=== PATIENT | female | born 1960 | race African-American/Black ===

== ENCOUNTER 2018-09-06 17:47 | Inpatient (IN) ==
[2018-09-06] MEDS ORDERED: PHENERGAN IM ONE (18:37)
[2018-09-06] MEDS ORDERED: MOTRIN PO ONE (18:37)
[2018-09-06] MEDS ORDERED: DELSYM LIQUID PO ONE (18:39)
--- NOTE | 2018-09-06 18:47 | PROVIDER DOCUMENTATION ---
HPI-General Adult - General Chief Complaint: Cold Symptoms Stated Complaint: COLD Time Seen by Provider: 09/06/18 17:52 Source: patient Allergies/Adverse Reactions: Patient Allergies Allergy/AdvReac Type Severity Reaction Status Date / Time No Known Allergies Allergy Verified 09/06/18 17:59 Home Medications: Home Medication List Medication Instructions Recorded Confirmed Last Taken Type Hydrocodone/APAP 5 mg/325 mg 1 - 2 tab PO Q6H PRN PRN #18 tablet 08/09/13 01/27/15 01/27/15 09:00 Rx [[place]-5] Sitagliptin Phos/Metformin HCl 1 each PO DAILY 08/14/13 01/27/15 01/27/15 09:00 History [Janumet 50-1,000 mg Tablet] Fentanyl 75 Microgm/Hr Patch 25 patch TOP DIRECTED 03/26/14 01/27/15 01/27/15 09:00 History [Duragesic 75 Microgm/Hr Patch] Olmesartan/Hydrochlorothiazide 1 tab PO DAILY 03/26/14 01/27/15 01/27/15 09:00 History [Benicar Hct 20-12.5 mg Tablet] Azithromycin [Zithromax Z-Jaime] 250 mg PO DIRECTED #1 pkg 01/16/16 Unknown Rx Cetirizine [Zyrtec] 10 mg PO DAILY #20 tablet 01/16/16 Unknown Rx Prednisone 10 mg PO DIRECTED #9 tablet 01/16/16 Unknown Rx Azithromycin [Zithromax Z-Jaime] 250 mg PO DIRECTED #1 pkg 06/03/16 Unknown Rx Prednisone 20 mg PO DAILY #10 tablet 06/03/16 Unknown Rx Cephalexin [Keflex] 500 mg PO 4XDAY #20 cap 03/12/18 Unknown Rx Ketorolac [Toradol] 10 mg PO Q6H PRN PRN #20 tab 03/12/18 Unknown Rx Ondansetron [Ondansetron Odt] 4 mg PO Q6-8H PRN PRN #20 03/12/18 Unknown Rx tab.rapdis - History of Present Illness -Gen Adult Nature of Presenting Problems: pt c/o 1 day HX of productive cough, subjective fever, body aches, LEUNG w/ sinus congestion, nausea, and generalized malaise . pt states she has had yellow sputum. pt states sx. at worse are moderate. Location of Pain/Injury: reports: head (LEUNG w sinus pain) Pain Radiation: reports: no radiation Quality of Pain: reports: aching, pressure, throbbing Severity: reports: moderate Onset/Duration: reports: unsure Timing: reports: still present Context/Activities at Onset: reports: none Modifying Factors: improves with: nothing (worse with coughing), coughing Associated Symptoms: reports: cough, fever/chills, headaches, malaise, muscle aches, sinus congestion/drainage, nausea. denies: seizure, shortness of breath, sensory/motor loss, pain with inspiration, swelling/mass in abdomen, syncope, vomiting, weakness, trouble walking Similar Symptoms Previously?: Yes (w/ prior URI) Recently seen or treated by another doctor?: No Review of Systems - Adult - REVIEW OF SYSTEMS - ADULT Constitutional: reports: see HPI Eyes: reports: no symptoms reported Ears, Nose, Mouth & Throat: reports: see HPI Cardiovascular: reports: no symptoms reported Respiratory: reports: no symptoms reported Gastrointestinal: reports: see HPI Genitourinary: reports: no symptoms reported Musculoskeletal: reports: no symptoms reported Integumentary: reports: no symptoms reported Neurological: reports: no symptoms reported Psychiatric: reports: no symptoms reported Endocrine: reports: no symptoms reported Hematologic/Lymphatic: reports: no symptoms reported Allergic/Immunologic: reports: no symptoms reported All Other Systems: Reviewed and Negative Past History - Adult - PAST MEDICAL HISTORY-ADULT Review of Records: reports: Old Records Reviewed, Nursing Assessment Review, Medications Reviewed Major Childhood Illnesses: reports: denies history Cardiovascular: reports: HTN Respiratory: reports: denies history Gastrointestinal: reports: denies history Obstetrical/Gynecological: reports: denies history Genitourinary: reports: denies history Musculoskeletal: reports: chronic pain (back) Neurological: reports: denies history Psychiatric: reports: denies history Endocrine/Immune: reports: Diabetes Diabetes Type: Type 2 Other Conditions: reports: denies history - PRIOR SURGERIES/PROCEDURES Surgical/Procedure History: reports: cholecystectomy, hysterectomy, BTL - PRIOR HOSPITALIZATIONS Prior Hospitalizations: reports: for other non-related - IMMUNIZATION STATUS Childhood Immunizations: See Nurse Assessment Flu Vaccine: See Nurse Assessment - FAMILY HISTORY Family History: reviewed, not pertinent - SOCIAL HISTORY Smoking: denies Substance Use: none/never Alcohol Use Frequency: never Physical Exam-General - PHYSICAL EXAM-ADULT Initial Vital Signs Reviewed: Yes - CONSTITUTIONAL General Appearance: appears well, alert, mild distress - EYES Eyes: PERRL/EOMI, pink conjunctivae, sclera injected. negative: conjuctival exudate, EOM palsy, photophobia, scleral icterus, subconjunctival hemorrhage, sunken eyes - HEAD, EARS, NOSE, MOUTH & THROAT HENMT: normocephalic/atraumatic, moist mucous membranes, normal ENT inspection - NECK Neck: non-tender, full range of motion, supple - RESPIRATORY Respiratory: chest non-tender, lungs clear, normal breath sounds, no pleuratic chest pain, no respiratory distress, no accessory muscle use - CARDIOVASCULAR Cardiovascular: normal peripheral pulses, regular rate, rhythm, no edema, no gallop, no JVD, no murmur - GASTROINTESTINAL (ABDOMEN) Abdominal Exam: normal bowel sounds, non tender, soft - LYMPHATIC Lymphatic: no adenopathy - MUSCULOSKELETAL Back Exam: normal inspection Extremity: normal range of motion - SKIN Integumentary: normal color, normal turgor, warm/dry - NEUROLOGIC Neurologic: supervisor finish end II-XII nml as tested, grossly normal, no motor/sensory deficits. negative: facial droop, focal weakness, motor weakness - PSYCHIATRIC Psych/Mental Status: normal mood/affect, normal thought content, normal thought process, oriented x 3 Progress - PLAN OF CARE/RESULTS Progress/Plan/Lab Results: Vital Signs - 8 hr 09/06/18 17:53 Temperature 99.4 F Pulse Rate 96 H Respiratory Rate 20 Blood Pressure 172/88 O2 Sat by Pulse Oximetry 96 Orders Category Date Time Status CHEST-2 VIEWS [RAD] Stat Exams 09/06/18 18:38 Ordered CBC WITH ELECTRONIC DIFF [HEME] Stat Lab 09/06/18 18:39 Uncollected COMPREHENSIVE METABOLIC PANEL [CHEM] Stat Lab 09/06/18 18:39 Uncollected Flu [INFLUENZA SCREEN PL] Stat Lab 09/06/18 18:41 Uncollected ua [URINALYSIS PL W/POSS RFLX CULT] [URINALYSIS] Stat Lab 09/06/18 18:39 Uncollected Dextromethorphan HBr [Delsym Liquid] Med 09/06/18 18:39 Discontinued 10 ml PO NOW ONE Ibuprofen [Motrin] Med 09/06/18 18:37 Discontinued 600 mg PO NOW ONE Promethazine [Phenergan] Med 09/06/18 18:37 Discontinued 25 mg IM NOW ONE Result Diagrams: 09/06/18 19:44 09/06/18 19:44 - XRAY 1 XRAY Study: Chest Impression: Abnormal XRAY Interpretation: opacities consistent w PNA Departure - Departure Date of Disposition Decision: 09/06/18 Time of Disposition Decision: 22:22 DIAGNOSIS: Pneumonia, Hypoxia Disposition: ADMITTED INPATIENT 09 Certified Medical Emergency: Emergent Condition: Stable Referrals and Follow-Ups: Christal Martinez [Primary Care Provider] - - Critical Care Note This patient required my direct & personal management of CC.: No Attestation - Physician/ GRADY Attestation Patient care was provided by Advanced Practice Provider:: Yes Advanced Practice Provider:: Anthony Ortiz Advanced Practice Provider documentation review:: The Mid-level provider documentation, treatment plan and medical decision making was reviewed by the physician who agrees with all treatment and medical decision making by the MLP. The physician spent face to face time with patient:: No Advanced Practice Provider documentation review:: Supervising physician onsite and consulted in the evaluation and care of this patient. The physician did not have a face to face encounter with the patient.
--- NOTE | 2018-09-06 19:37 | Diag Imaging Result Doc PS360 ---
EXAM: CHEST-2 VIEWS HISTORY: pluritic CP/ productive cough TECHNIQUE: Chest two views COMPARISON: 06/03/2016 FINDINGS: Poor inspiratory effort.The heart is not enlarged. The vessels are not distended. There are mild increased markings in the left base. No pleural effusions. IMPRESSION: Small left infiltrate Electronically signed by Eugene Hampton 09/06/2018 7:35 PM
[2018-09-06 19:41] LABS: INFLUENZA A NEGATIVE (NEGATIVE); INFLUENZA B NEGATIVE (NEGATIVE)
[2018-09-06 20:02] LABS: BASO# 0.02 X1000 (0.0-0.2); BASO% 0.2 % (0.0-0.8); EOS# 0.02 X1000 (0.0-0.7); EOS% 0.2 % (0.0-10.0); HEMATOCRIT 41.1 % (37.0-47.0); HEMOGLOBIN 13.4 g/dL (12.0-16.0); IMM GRAN# 0.02 X1000 (0.0-0.04); IMM GRAN% 0.2 % (0.0-0.5); LYMPH# 1.11 X1000 (1.2-3.4); LYMPH% 9.7 % (20.5-51.1); MCH 27.2 PG (27-31); MCHC 32.6 g/dL (33-37); MCV 83.4 FL (81-99); MONO# 0.87 X1000 (0.11-0.59); MONO% 7.6 % (1.7-9.3); MPV 10.2 FL (7.4-10.4); NEUT# 9.45 X1000 (1.4-6.5); NEUT% 82.1 % (42.2-75.2); PLT 316 X1000 (130-400); RBC 4.93 XMIL (4.2-5.4); RDW 13.9 % (11.5-14.5); WBC 11.49 X1000 (4.8-10.8)
[2018-09-06 20:26] LABS: AGAP 9; ALKALINE PHOSPHATASE 99 U/L (32-104); BUN 9 mg/dL (8-22); CALCIUM 8.9 mg/dL (8.8-10.2); CHLORIDE 96 mmol/L (98-107); COSMO 273; CREATININE 0.5 mg/dL (0.5-0.9); ESTIMATED GFR > 60; GLUCOSE 141 mg/dL (70-104); GOT 24 U/L (10-30); GPT 35 U/L (10-36); POTASSIUM 4.2 mmol/L (3.5-5.1); SODIUM 136 mmol/L (136-145); TCO2 31 mmol/L (25-35); TOTAL PROTEIN 7.6 g/dL (6.3-8.3)
[2018-09-06 20:26] LABS: URINE BACTERIA NEGATIVE /HFP; URINE CAST NONE SEEN /LPF; URINE CRYSTAL NONE SEEN /HPF; URINE EPITHELIAL CELLS <10 /HPF (<10); URINE SOURCE CLEAN CATCH; URINE YEAST NONE SEEN /HPF
[2018-09-06 20:28] LABS: BILIRUBIN URINE NEGATIVE (NEGATIVE); BLOOD URINE NEGATIVE (NEGATIVE); CLARITY CLEAR (CLEAR); COLOR YELLOW; GLUCOSE URINE NEGATIVE (NEGATIVE); KETONE URINE NEGATIVE (NEGATIVE); LEUKOCYTES URINE NEGATIVE (NEGATIVE); NITRITE URINE NEGATIVE (NEGATIVE); PROTEIN URINE NEGATIVE (NEGATIVE); SP GRAVITY URINE 1.005; UROBILINOGEN URINE NORMAL
[2018-09-06] MEDS ORDERED: DUONEB (A & A) INH ONE (20:51)
[2018-09-06] MEDS ORDERED: ZITHROMAX 500 MG/NS 500 MG/250 ML IVPB IV ONE (22:16)
[2018-09-06] MEDS ORDERED: ROCEPHIN 1 GM in NS 50 ML IV ONE (22:16)
[2018-09-06] MEDS ORDERED: NS 1,000 ML IV ONE ×2 (22:18→23:12)
[2018-09-06] MEDS ORDERED: TYLENOL PO PRN (23:12)
[2018-09-06] MEDS: DUONEB (A & A) INH SCH (23:50)
[2018-09-06] MEDS: NORCO-7.5 PO PRN (23:53)
[2018-09-07] MEDS: ROBITUSSIN-DM PO PRN ×3 (00:08→23:11)
[2018-09-07] MEDS: ZOFRAN IV PRN ×3 (00:09→22:02)
[2018-09-07] MEDS ORDERED: NORCO-7.5 PO SCH (02:00)
[2018-09-07] MEDS: ZITHROMAX 500 MG/NS 500 MG/250 ML IVPB IV SCH ×2 (02:36→23:11)
[2018-09-07] MEDS: DUONEB (A & A) INH SCH ×5 (03:50→21:11)
[2018-09-07] MEDS: NORCO-7.5 PO PRN (07:20)
[2018-09-07] MEDS ORDERED: HYDROCHLOROTHIAZIDE PO SCH (10:15)
[2018-09-07] MEDS ORDERED: OLMESARTAN PO SCH (10:15)
[2018-09-07] MEDS ORDERED: NON-FORMULARY MED (Sitagliptin Phos/Metformin Hcl [Janumet 50-1,000 Mg Tablet] 1 EACH) PO SCH (10:15)
[2018-09-07] MEDS ORDERED: [UNRECOGNIZED DRUG - OTHER] PO SCH (10:15)
[2018-09-07] MEDS: NEXIUM PO SCH (11:39)
[2018-09-07] MEDS: BENICAR PO SCH (11:40)
[2018-09-07] MEDS: HYDROCHLOROTHIAZIDE PO SCH (11:40)
[2018-09-07] MEDS: GLUCOPHAGE PO SCH ×2 (11:41→11:44)
[2018-09-07] MEDS: JANUVIA PO SCH (11:41)
[2018-09-07] MEDS: NORCO-10 PO SCH ×3 (11:42→16:32)
--- NOTE | 2018-09-07 15:08 | HISTORY AND PHYSICAL ---
PRIMARY CARE PHYSICIAN: Dr. Christal Martinez. CHIEF COMPLAINT: Subjective fever, body aches, productive cough of yellow sputum, nausea, generalized malaise, and headache for the past several days that had progressively worsened. HISTORY OF PRESENTING ILLNESS: This is a 58-year-old female who presents to [facility] ER with complaints of a subjective fever, body aches, a productive cough of yellow sputum, generalized malaise, nausea, and a headache. Workup in the emergency room showed a white blood cell count of 11.49. Influenza A and B were both negative. Her chest x-ray showed a small left infiltrate. When she arrived, she had an O2 saturation of 96%, but it did drop down to 91% on room air, so she was placed on O2 via nasal cannula and is currently saturating anywhere from 93% to 100% and admitted for further evaluation and treatment. PAST MEDICAL HISTORY: Hypertension diabetes type 2, and chronic pain. PAST SURGICAL HISTORY: Cholecystectomy, hysterectomy, and a bilateral tubal ligation. FAMILY HISTORY: Reviewed and noncontributory. SOCIAL HISTORY: She currently lives with family. Denies any tobacco, alcohol, or illicit drug use. ALLERGIES: She has no known drug allergies. HOME MEDICATIONS: She takes Nexium 40 mg p.o. daily; Warba 10 one p.o. t.i.d.; Benicar/hydrochlorothiazide 20/12.5 one p.o. daily; Janumet mg 1 p.o. daily. LABORATORY DATA: Showed a white blood cell count of 11.49, hemoglobin of 13.4, hematocrit 41.1, platelets 316,000. Sodium 136, potassium 4.2, chloride 96, CO2 of 31, BUN of 9, creatinine 0.5, glucose 141. Plasma lactate of 0.9. Urinalysis showed none detected. Influenza A and B were both negative. Chest x-ray showed a small left infiltrate. REVIEW OF SYSTEMS: She was positive for a subjective fever, body aches, generalized malaise, headache, shortness of breath worse with exertion, productive cough of yellow sputum, nausea. Denied any abdominal pain, constipation, diarrhea, burning or hurting with urination. PHYSICAL EXAMINATION: VITAL SIGNS: On arrival showed a temperature of 99.4 degrees, pulse 96, respirations 20, blood pressure 172/88, saturating 96% on room air. Her O2 saturation did drop as low as 91% on room air. She was placed on O2 via nasal cannula at 2 L and is saturating anywhere from 93% to 100% on her 2 L. HEENT: Normocephalic, atraumatic. Normal ENT inspection. Oropharynx and nares are clear. EYES: Pupils are equal, round, and reactive to light and accommodation. Extraocular movements are intact. NECK: Normal inspection. Normal range of motion. LUNGS: With decreased breath sounds throughout entire posterior lung rangel. Equal lung expansion of chest wall movement noted. O2 via nasal cannula currently in use. HEART: Regular rate and rhythm. No murmurs, rubs, or gallops. ABDOMEN: Soft, nontender, nondistended. Bowel sounds are present x4 quadrants. MUSCULOSKELETAL: She had 5/5 strength x4 extremities. NEUROLOGICAL: The cranial nerves 2-12 appear grossly intact. ASSESSMENT: 1. Left lower lobe pneumonia. 2. Hypoxemia. 3. Hypertension. 4. Diabetes type 2. PLAN: She currently is admitted to the medical unit at [facility] and placed on a diabetic diet. Blood cultures x2 were pending. We will place her on Rocephin 1 gram IV q.24, azithromycin 500 IV q.24, DuoNebs q.4 hours. Continue home medications as previously identified. Recheck a CBC and a BMP in the a.m. Further orders after seen by attending. Dictated by DONYA Moreau for Joao Hernandez MD cc: DONYA Moreau MD Faye Wilson, MD
[2018-09-07] MEDS: ROCEPHIN 1 GM in NS 50 ML IV SCH (21:56)
[2018-09-08] MEDS: DUONEB (A & A) INH SCH ×7 (01:00→22:32)
[2018-09-08] MEDS: NEXIUM PO SCH (06:09)
[2018-09-08 07:21] LABS: BASO# 0.01 X1000 (0.0-0.2); BASO% 0.1 % (0.0-0.8); HEMATOCRIT 37.9 % (37.0-47.0); HEMOGLOBIN 12.5 g/dL (12.0-16.0); IMM GRAN# 0.01 X1000 (0.0-0.04); IMM GRAN% 0.1 % (0.0-0.5); LYMPH# 1.94 X1000 (1.2-3.4); LYMPH% 21.4 % (20.5-51.1); MCH 27.5 PG (27-31); MCV 83.5 FL (81-99); MONO# 0.97 X1000 (0.11-0.59); MONO% 10.7 % (1.7-9.3); MPV 10.7 FL (7.4-10.4); NEUT# 6.14 X1000 (1.4-6.5); NEUT% 67.7 % (42.2-75.2); PLT 272 X1000 (130-400); RBC 4.54 XMIL (4.2-5.4); RDW 13.7 % (11.5-14.5); WBC 9.07 X1000 (4.8-10.8)
[2018-09-08 07:44] LABS: AGAP 9; BUN 7 mg/dL (8-22); CALCIUM 8.6 mg/dL (8.8-10.2); CHLORIDE 95 mmol/L (98-107); COSMO 271; CREATININE 0.4 mg/dL (0.5-0.9); ESTIMATED GFR > 60; GLUCOSE 122 mg/dL (70-104); POTASSIUM 3.5 mmol/L (3.5-5.1); SODIUM 136 mmol/L (136-145); TCO2 31 mmol/L (25-35)
[2018-09-08] MEDS: HYDROCHLOROTHIAZIDE PO SCH (10:43)
[2018-09-08] MEDS: JANUVIA PO SCH (10:44)
[2018-09-08] MEDS: GLUCOPHAGE PO SCH (10:44)
[2018-09-08] MEDS: BENICAR PO SCH (10:45)
[2018-09-08] MEDS: NORCO-10 PO SCH ×3 (10:47→17:16)
[2018-09-08] MEDS ORDERED: PNEUMOVAX 23 IM ONE (12:00)
--- NOTE | 2018-09-08 14:51 | PROGRESS NOTE ---
DATE: 09/08/2018 PHYSICAL: Temperature 99, pulse 87, respiratory 18, BP 136/60, saturation 92% on 2 L.General: Patient is awake, she is in mild respiratory distress. She is still gets winded walking from the restroom to bed which she has just done creating her mild distress. HEENT: Normocephalic. Neck: Supple. CV: Regular rate. No murmurs. Chest: Mild wheezing. Decreased but equal breath sounds bilaterally. Abdomen: Soft, nondistended. Extremities: Moves all extremities. Neuro: No changes. ASSESSMENT: 1. Left lower lobe pneumonia . 2. Hypoxic respiratory failure acute secondary to pneumonia. 3. Hypertension. 4. Diabetes. PLAN: Will continue patient in the hospital, continue oxygen, breathing treatments, antibiotics and will follow. Hopefully she can discharge home over the next 1 or 2 days. cc: Horace Russell MD
[2018-09-08] MEDS: ROCEPHIN 1 GM in NS 50 ML IV SCH (22:18)
[2018-09-08] MEDS: ZOFRAN IV PRN (22:20)
[2018-09-08] MEDS: ZITHROMAX 500 MG/NS 500 MG/250 ML IVPB IV SCH (22:52)
[2018-09-08] MEDS: NORCO-7.5 PO PRN (22:52)
[2018-09-08] MEDS: ROBITUSSIN-DM PO PRN (22:53)
[2018-09-09] MEDS: DUONEB (A & A) INH SCH ×6 (03:28→22:51)
[2018-09-09] MEDS: NEXIUM PO SCH (06:13)
[2018-09-09] MEDS ORDERED: ZITHROMAX 500 MG/NS 500 MG/250 ML IVPB IV SCH (06:54)
[2018-09-09] MEDS: JANUVIA PO SCH (08:46)
[2018-09-09] MEDS: BENICAR PO SCH (08:46)
[2018-09-09] MEDS: NORCO-10 PO SCH ×3 (08:47→17:31)
[2018-09-09] MEDS: HYDROCHLOROTHIAZIDE PO SCH (08:47)
[2018-09-09] MEDS ORDERED: ZITHROMAX PO SCH (09:00)
[2018-09-09] MEDS: ZOFRAN IV PRN (14:22)
--- NOTE | 2018-09-09 20:28 | PROGRESS NOTE ---
DATE: 09/09/2018 SUBJECTIVE: The patient notes that she is starting to feel a little bit better. Her cough is improved. Denies any fevers or chills. Denies chest pain or palpitations. PHYSICAL EXAMINATION: Vital Signs: Reviewed. Temp 98 degrees, pulse 86, respiratory 18, BP 110/67. General: The patient is pleasant. She is in no distress. HEENT: Normocephalic. Neck: Supple. Cardiovascular: Regular rate. Chest: Clear. Abdomen: Soft. Extremities: Moves all extremities. ASSESSMENT: 1. Left lower lobe pneumonia. 2. Hypoxemia. 3. Hypertension. 4. Diabetes. PLAN: We will continue patient in the hospital. Continue Rocephin and switch to azithromycin p.o. Continue breathing treatments, oxygen as needed. Hopefully she can discharge home over the next 1 or 2 days if she is able to start ambulating a little bit better. cc: Horace Russell MD
[2018-09-09] MEDS: ROCEPHIN 1 GM in NS 50 ML IV SCH (21:59)
[2018-09-10] MEDS: ZOFRAN IV PRN (00:22)
[2018-09-10] MEDS: NORCO-7.5 PO PRN (00:22)
[2018-09-10] MEDS: ROBITUSSIN-DM PO PRN (00:24)
[2018-09-10] MEDS: DUONEB (A & A) INH SCH ×2 (03:09→07:10)
[2018-09-10] MEDS: NEXIUM PO SCH (06:08)
[2018-09-10 07:37] VITALS: BP 120/60
[2018-09-10] MEDS ORDERED: OMNICEF PO SCH (09:00)
--- NOTE | 2018-09-11 14:31 | DISCHARGE SUMMARY ---
ADMISSION DATE: 09/06/2018 DISCHARGE DATE: 09/10/2018 DISCHARGE DIAGNOSES: 1. Acute hypoxic respiratory failure. Patient to be discharged home on home oxygen. 2. Left lower lobe pneumonia, 3. Hypertension. 4. Diabetes. 5. Obesity. PLAN: Overall, patient has continued to improve. Hopefully, her symptoms will continue to improve at home, and she can wean off oxygen. She was admitted to the hospital and placed on antibiotics. Breathing treatments with oxygen, continue to require oxygen packs. Saturation was 86% on room air on the date of discharge. DISPOSITION: Patient will be discharged home. She will follow up outpatient with treatment facility of choice. Discussed with her that she will need to continue oxygen until she is rechecked, and prove that she does not need it any longer. Discussed the perils of smoking. We will continue her home medications without changes. TIME SPENT: Greater than 30 minutes was spent on discharge. cc: Horace Russell MD
== END 2018-09-10 09:09 | disposition home or self-care (01) | DRG 193 ==
LOC: P.MEDSURG 17:47 → P.ED 17:47 → SUATTDRO 17:48 → OBSVTOIN 17:48
PROVIDERS: ATTEND Family Medicine
CPT/HCPCS: 71020; 71046; 80048; 80053; 81001; 82948; 83605; 85025; 87040; 87275; 87276; 87804; 94640; 94667; 94668; 94761; 96365; 96372; 99285; A9270; J0456; J0696; J2405; J2550; J7030; XXXXX